=== PATIENT | female | born 1990 | race Caucasian/White ===

== ENCOUNTER 2024-12-14 08:19 | Emergency (ER) | payer MEDICAID, SELFPAY ==
[2024-12-14 08:24] VITALS: BP 112/69; PULSE 68; RESP 16; TEMP 36.9; O2SAT 100
[2024-12-14 08:44] VITALS: PULSE 75; RESP 22; O2SAT 99
--- NOTE | 2024-12-14 09:02 | XR_ITS ---
Examination: CT abdomen and pelvis without contrast. Coronal 3-D reconstructions. Sagittal 2-D reconstructions. Date and time of exam:December 14, 2024 at 0911 hours Comparison February 21, 2023 INDICATIONS: Epigastric pain nausea vomiting diarrhea beginning 2 days ago CTDI: vol (mGy): 9.3 DLP: (mGycm): 500 Technique: Axial images of the abdomen have been obtained, 3 mm slice thickness Intravenous contrast material has not been administered. Low dose protocols were performed. One or more of the following dose reduction techniques were used; automated exposure control, adjustment of the mA and/or KV according to patient size, use of iterative reconstruction technique. Findings: No focal liver or splenic lesion No gallstones No pancreatic or adrenal mass No renal or ureteral calculi, no hydronephrosis Normal appendix Mild diffuse wall thickening involving the colon No bowel obstruction Anteverted uterus No adnexal mass Contracted urinary bladder Moderate distention posteriorly L5-S1 IMPRESSION: Mild diffuse nonspecific colitis pattern Normal appendix
--- NOTE | 2024-12-14 09:02 | EKG_ITS ---
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
--- NOTE | 2024-12-14 09:02 | PD.EDRME ---
Rapid Medical Screening Exam RME Arrival date/time: 12/14/24 08:19 34-year-old female presents emergency department today via EMS with complaint of nausea vomiting abdominal pain Chief Complaint: Abdominal Pain Vital signs: Vital Signs Temperature 98.4 F 12/14/24 08:24 Pulse Rate 68 12/14/24 08:24 Respiratory Rate 16 12/14/24 08:24 Blood Pressure 112/69 12/14/24 08:24 Pulse Oximetry (%) 100 12/14/24 08:24
[2024-12-14 09:46] LABS: Basophils # (Auto) 0.1 Thou/mm3 (0.0-0.2); Basophils % (Auto) 1 % (0-2.5); Eosinophils # (Auto) 0.1 Thou/mm3 (0.0-0.5); Eosinophils % (Auto) 1 % (0-10); Hematocrit 36.4 % (36.0-46.0); Hemoglobin 11.6 g/dL (12.0-16.0); Immature Granulocytes % (Auto) 1 % (0-0); Immature Granulocytes Auto 0.05 Thou/mm3 (0.00-0.00); Lymphocytes # (Auto) 1.3 Thou/mm3 (1.0-4.8); Lymphocytes % (Auto) 20 % (10-50); Mean Corpuscular HGB Conc 31.9 g/dl (31.0-37.0); Mean Corpuscular Hemoglobin 27.9 pg (25.0-35.0); Mean Corpuscular Volume 88 fL (80-100); Monocytes # (Auto) 0.5 Thou/mm3 (0.0-0.8); Monocytes % (Auto) 7 % (0-12); Neutrophils # (Auto) 4.6 Thou/mm3 (1.8-7.7); Neutrophils % (Auto) 71 % (37-80); Nucleated Red Blood Cell % 0 /100 WBC (0); Platelet Count 295 Thou/mm3 (140-440); RDW Standard Deviation 50.7 fL (36.4-46.3); Red Blood Count 4.16 Miln/mm3 (4.00-5.20); White Blood Count 6.5 Thou/mm3 (3.6-11.0)
[2024-12-14 10:05] LABS: Alanine Aminotransferase 11 U/L (10-49); Albumin, Serum 4.5 gm/dL (3.5-5.0); Albumin/Globulin Ratio 1.7 (1.2-2.2); Alkaline Phosphatase 84 U/L (46-116); Anion Gap 11 (7-16); Aspartate Amino Transferase 19 U/L (0-34); BUN/Creatinine Ratio 9 Ratio (12-20); Bilirubin,Total 0.4 mg/dL (0.3-1.2); Blood Urea Nitrogen 8 mg/dL (9-23); Calcium 9.1 mg/dL (8.3-10.6); Calcium (Corrected) 9.1 mg/dL (8.5-10.1); Carbon Dioxide 28.1 mMol/L (20.0-31.0); Chloride 102 mMol/L (98-107); Creatinine (Component) 0.9 mg/dL (0.6-1.3); Globulin 2.6 gm/dL (2.3-3.5); Glucose 108 mg/dL (74-106); Lipase 26 U/L (12-53); Osmolality,Calculated 280 (275-295); Potassium 3.8 mMol/L (3.4-5.1); Sodium 141 mMol/L (136-145); Total Protein 7.1 gm/dL (5.7-8.2); Troponin I < 0.002 ng/mL (0.0-0.045); eGFR > 60 See Note
[2024-12-14] MEDS: ONDANSETRON ODT 4 MG TABRAP PO (10:19)
[2024-12-14 10:27] LABS: Collection Type, Urine Clean Catch
[2024-12-14 11:12] LABS: Bilirubin,Urine Negative (Negative); Blood,Urine 2+ (Negative); Clarity,Urine Turbid (Clear/Hazy); Color,Urine Yellow (Lt Yel-Yel); Culture Indicated,Urine Not Indicated; Glucose, Urine Negative (Negative); Ketones,Urine Negative (Negative); Leukocyte Esterase,Urine Negative (Negative); Nitrite,Urine Negative (Negative); PH,Urine 6.5 (5.0-7.0); Protein,Urine 1+ (Neg - Trace); RBC,Urine 4 /hpf (0-3); Specific Gravity,Urine 1.027 (1.001-1.035); Squamous Epithelial Cell,Urine 18 /hpf (0-5); Urobilinogen,Urine Negative mg/dL (0.0-1.0); WBC,Urine 3 /hpf (0-5)
[2024-12-14 11:38] LABS: Amphetamine/Methamp Scrn,U Negative (Negative); Barbiturate Screen,Urine Negative (Negative); Benzodiazepines Screen,Urine Negative (Negative); Benzoylecgonine Screen, Ur Negative (Negative); Fentanyl Screen,Urine Negative (Negative); Opiate Screen,Urine Negative (Negative); THC Screen,Urine Positive (Negative)
--- NOTE | 2024-12-14 11:54 | PD.EDADULT ---
ED General RME/HPI General Chief complaint: Abdominal Pain Stated complaint: ABDOMINAL/ CHEST PAIN Time Seen by Provider: 12/14/24 11:49 Arrival date/time: 12/14/24 08:19 CC: Left upper left lower quadrant abdominal pain left upper quadrant pain onset 1 month ago left lower quadrant pain in the last 3 days. Denies fever chills diarrhea shortness of breath difficulty breathing intermittent nausea without vomiting. Localized pain now is a 3-4 out of 10 scale. Patient appears nontoxic RME / HPI RME / HPI narrative: 12/14/24 08:19 34-year-old female presents emergency department today via EMS with complaint of nausea vomiting abdominal pain Related Data Home Medications ?Medication ?Instructions ?Recorded ?Confirmed prenat.vits,africa,hgt-saae-kdiis 1 tab PO QDAY 02/02/18 05/06/18 ( Vitamin tablet) ferrous sulfate 325 mg (65 mg 325 mg PO QDAY 05/06/18 05/06/18 iron) tablet (iron) Previous Rx's ?Medication ?Instructions ?Recorded hydrocodone 5 mg-acetaminophen 300 1 tab PO QID PRN pain #10 tabs 05/15/18 mg tablet (Vicodin) ibuprofen 600 mg tablet 600 mg PO TID pain #30 tabs 05/15/18 hydrocodone 5 mg-acetaminophen 325 1 tab PO Q6H PRN pain #15 tabs 12/27/22 mg tablet ibuprofen 800 mg tablet 800 mg PO Q8H PRN pain #30 tabs 12/27/22 naproxen 500 mg tablet 500 mg PO BID PRN pain #30 tabs 01/28/24 ciprofloxacin HCl 500 mg tablet 500 mg PO BID #14 tabs 12/14/24 (Cipro) dicyclomine 20 mg tablet 20 mg PO BID #14 tabs 12/14/24 metronidazole 500 mg tablet 500 mg PO BID 7 days #14 tabs 12/14/24 ondansetron 4 mg disintegrating 4 mg PO Q8H PRN nausea and 12/14/24 tablet vomiting #10 tabs Allergies Allergy/AdvReac Type Severity Reaction Status Date / Time No Known Allergies Allergy Verified 02/21/23 17:06 Review of Systems Review of Systems Narrative Review of Systems: GEN: No fever, no chills, no weight loss EYES: No discharge, no visual changes, no pain HEENT: No ear pain, no congestion, no sore throat PULM: No shortness of breath, no cough, no congestion CV: No chest pain, no dyspnea on exertion, no palpitations GI: No nausea, no vomiting, no diarrhea, +pain, no constipation : No frequency, no urgency, no dysuria MUSC/SKEL: No joint pain, no back pain SKIN: No rash PSYCH: No hallucinations, no depression HEME/LYMPH: No easy bleeding or bruising tendencies NEURO: No weakness, no headache Past Medical History Past Medical History NEUROLOGIC: Negative Neurological Disorders or Seizures CARDIAC: Negative Cardiac Disorders or Congestive Heart Failure RESPIRATORY: Negative Chronic Obstructive Pulmonary Disease (COPD) GASTROINTESTINAL: Negative Gastrointestinal Disorders GENITOURINARY: Negative Genitourinary Disorders or Renal Disease REPRODUCTIVE: Positive Previous Pregnancies (x5 including 1 SAB) MUSCULOSKELETAL: Negative Musculoskeletal Disorders ENDOCRINE: Negative Endocrine Disorders, Diabetes Mellitus Type 1 or Diabetes Mellitus Type 2 HEMATOLOGIC: Positive Blood Disorders and Anemia (HX-IV iron infusion) PSYCHO/SOCIAL: Positive Depression and Anxiety OTHER HISTORY: Positive Hospitalization (childbirth, tooth abcess) and Chicken Pox (as child); Negative Autoimmune Disease, Blood Transfusions, Blood Transfusion Reaction or Anesthesia Reactions Family History FAMILY HISTORY: Positive Family Cardiac Disorders (mat grandfather-HTN, mat grandmother-varicose veins); Negative Family Psychiatric Problems, Family Respiratory Disorders, Family Gastrointestinal Problems, Family Cancer, Family Surgery or Family Anesthesia Reaction Surgical History SURGICAL: Positive Section (x4) Social History SMOKING STATUS: Never smoker SECOND HAND EXPOSURE: No ED Exam Narrative Physical exam: [General: Obese not in any acute distress Head normocephalic HEENT: Within acceptable limits Neck is supple nontender Chest equal chest rise nontender to palpation Respiratory: Clear to auscultation no wheezes crackles or rubs CV: Rate rhythm is regular no murmurs rubs or clicks Abdomen mild left upper and left lower quadrant abdominal pain lower quadrant more significant than the upper quadrant, no right-sided tenderness in the lower quadrant minimal tenderness in the right upper quadrant. No masses appreciated positive bowel sounds all 4 quadrants. Back: No CVA tenderness no spinous process tenderness from cervical spine thoracic and lumbar spine Skin: Intact no petechiae rash induration ulceration or crepitus Extremities: Moving all extremity against resistance cap refill less than 2 seconds neurosensory intact Neuro: Awake alert oriented x3 Glascow coma 15 no focal deficits] Course Quality Measures none Orders Category Date Time Status EKG (ED ONLY) *Do not use* NOW Care 12/14/24 09:[address] abdomen pelvis wo con Stat Exams 12/14/24 09:02 Completed EKG (ED Only) Stat Exams 12/14/24 09:02 Draft CBC Stat Lab 12/14/24 09:16 Completed Comprehensive Metabolic Panel Stat Lab 12/14/24 09:16 Completed Drug Screen,Urine Stat Lab 12/14/24 10:10 Completed Lipase Stat Lab 12/14/24 09:16 Completed Troponin I Stat Lab 12/14/24 09:16 Completed UA, C/S IF [Urinalysis, C/S if Indicated] Stat Lab 12/14/24 10:10 Completed Ondansetron Odt [Zofran Odt] Med 12/14/24 09:02 Discontinued 4 mg PO X1 ONE Vital Signs Vital signs: Vital Signs Temperature 98.4 F 12/14/24 08:24 Pulse Rate 68 12/14/24 08:24 Respiratory Rate 16 12/14/24 08:24 Blood Pressure 112/69 12/14/24 08:24 Pulse Oximetry (%) 100 12/14/24 08:24 Discharge Plan Plan Patient Disposition: HOME (Self Care) Patient condition on transfer: Stable Prescriptions/Referrals Prescriptions/Med Rec: New ciprofloxacin HCl [Cipro] 500 mg tablet 500 mg PO BID Qty: 14 0RF metronidazole 500 mg tablet 500 mg PO BID 7 Days Qty: 14 0RF dicyclomine 20 mg tablet 20 mg PO BID Qty: 14 0RF ondansetron 4 mg tablet,disintegrating 4 mg PO Q8H PRN (Reason: nausea and vomiting) Qty: 10 0RF No Action prenat.vits,africa,[id number] [ Vitamin] Tablet 1 tab PO QDAY ferrous sulfate [iron] 325 mg (65 mg iron) Tablet 325 mg PO QDAY hydrocodone-acetaminophen [Vicodin] 5-300 mg tablet 1 tab PO QID MDD 4 PRN (Reason: pain) Qty: 10 0RF ibuprofen 600 mg tablet 600 mg PO TID MDD 6 Qty: 30 0RF naproxen 500 mg tablet 500 mg PO BID PRN (Reason: pain) Qty: 30 0RF ibuprofen 800 mg tablet 800 mg PO Q8H PRN (Reason: pain) Qty: 30 0RF hydrocodone-acetaminophen 5-325 mg tablet 1 tab PO Q6H MDD 4 PRN (Reason: pain) Qty: 15 0RF Referrals: Srikanth Hussein FNP [Primary Care Provider] - In 1 week Problem List Clinical Impression: Colitis Patient/Caregiver Discharge Instructions Education Materials: Understanding Colitis, ED Diet, [place] (Adult) Additional Instructions: Take the medication as prescribed, follow-up with your primary care doctor. If there is worsening of symptoms spite of medications return the emergency room medially for further evaluation. Print Language: Nauruan Stand Alone Forms: [employer] Award Info., Patient Portal Info Letter, Work/School Release PAPA/BEBETO Supervising Physician PAPA/MATCHBOOK ASSEMBLER Supervising Physician: Ruddy LIEBERMAN Clinical Information Provided by: patient Medical Records reviewed [facility] Meds/Rx considered, not ordered None Labs/Rad/Tests considered, not ordered None Chronic Illness/Social Conditions which may negatively complicate care or outcome(s)-explain: None or not applicable EKG EKG not done Labs Labs: interpreted by me Lab(s) Interpretation(s): CBC shows no acute leukocytosis anemia thrombocytopenia CMP shows no significant electrolyte imbalances renal impairment transaminitis or T. bili elevation Urine is turbid 1+ protein 2+ blood 18 squamous epithelia UDS is positive for marijuana. Imaging Imaging interpretation: interpreted by me Imaging Interpretation(s): CT of the abdomen as interpreted by me read by radiology shows colitis. Medication Administration(s) none Medication Administration History Discontinued Medications Ondansetron HCl (Ondansetron Odt 4 Mg Tabrap) 4 mg PO X1 ONE; Protocol Stop: 12/14/24 09:03 Last Admin: 12/14/24 10:19 Dose: 4 mg Documented By: LF Diagnosis Differential Diagnosis ED Complaint MDM: Colitis cholelithiasis diverticulitis
[2024-12-14 12:20] VITALS: BP 110/73; PULSE 69; RESP 16; TEMP 37.1; O2SAT 98
== END 2024-12-14 12:22 | disposition home or self-care (01) ==
PROVIDERS: Nurse Practitioner Primary Care; Emergency Provider Emergency Medicine; PCP Nurse Practitioner Family
DX: K52.9 Noninfective gastroenteritis and colitis, unspecified (principal)
CPT/HCPCS: 36415; 74176; 80053; 80307; 81001; 83690; 84484; 85025; 93005; 99284; Q0162